=== PATIENT | male | born 1995 | race African-American/Black ===

== ENCOUNTER 2016-09-14 15:18 | Emergency (ER) | payer SELFPAY ==
[~2016-09-14] VITALS: Ht 172.7 cm; Wt 75.0 kg
[2016-09-14 15:27] VITALS: BP 164/98; PULSE 94; RESP 18; TEMP 98.1; O2SAT 100
--- NOTE | 2016-09-14 15:35 | PD ---
HPI Chief Complaint: Chest Pain Time Seen by Provider: 15:25 Travel History International Travel<30 days: No Contact w/Intl Traveler<30days: No Traveled to known affect area: No History of Present Illness HPI This is a 21-year-old male who presents to the emergency department with 30 minutes of chest discomfort, constant, sharp and stabbing associated with numbness in his left arm that started while he was cleaning. He denies any associated shortness of breath, nausea or diaphoresis. He's never had pain like this before. He came to the emergency department because he wanted to make sure nothing was wrong. He has no history of hypertension, hyperlipidemia , diabetes, family history of heart disease and denies any recent drug use. [facility] Past Medical History Medical History: Denies Significant Hx Social History Tobacco Use: No Substance Use: Yes (has a history of a corcidin overdose 4 years ago) Allergies-Medications Reported Meds & Prescriptions no medications Review of Systems Except as stated in HPI: all other systems reviewed are Neg Physical Exam Narrative GENERAL:Well appearing, no acute distress SKIN: Warm and dry. HEAD: Atraumatic. Normocephalic. EYES: Pupils equal and round. No injection or drainage. ENT: Moist mucous membranes NECK: Trachea midline. CARDIOVASCULAR: Regular rate and rhythm. No murmur appreciated. RESPIRATORY: Clear to auscultation. Breath sounds equal bilaterally. GASTROINTESTINAL: Abdomen soft, non-tender, nondistended. MUSCULOSKELETAL: No obvious deformities. NEUROLOGICAL: Awake and alert. No obvious cranial nerve deficits. Moving all extremities. PSYCHIATRIC: Tearful. Data Data Last Documented VS Vital Signs Date Time Temp Pulse Resp B/P Pulse Ox O2 Delivery O2 Flow Rate FiO2 09/14/16 15:27 Room Air [facility] Medical Decision Making Medical Screen Exam Complete: Yes Emergency Medical Condition: Yes Interpretation(s) EKG: Normal sinus rhythm with no ST changes Differential Diagnosis Acute coronary syndrome, pericarditis, costochondritis, panic attack Narrative Course This is a 21-year-old male who presents to the emergency department with chest discomfort that started half an hour prior to arrival. He is very well- appearing on exam and no medical problems. EKG was nonischemic. Chest x-rays reassuring. I don't suspect an emergent etiology of the patient's pain given his well appearance. Patient will be discharged home and can follow-up with his primary care physician. Diagnosis Primary Impression: Chest pain Qualified Code: R07.9 - Chest pain, unspecified type Patient Instructions: General Instructions Additional Instructions: If you develop severe chest pain, shortness of breath, sweating, lightheadedness , dizziness or difficulty breathing return to the emergency department immediately. Followup with your primary care physician in 2-3 days if your symptoms are not resolved. Med/Other Pt SpecificInfo: No Change to Meds Disposition: 01 DISCHARGE HOME Condition: Stable Cayla Uribe MD Sep 14, 2016 15:35
--- NOTE | 2016-09-14 15:56 | RADHPO ---
EXAM DATE/TIME: 09/14/2016 15:38 [place] COMPARISON: No previous studies available for comparison. INDICATIONS : Sudden onset of chest pain radiating down left arm, short of breath MEDICAL HISTORY : None. SURGICAL HISTORY : None. ENCOUNTER: Initial ACUITY: 1 day PAIN SCORE: 7/10 LOCATION: Bilateral chest FINDINGS: A single view of the chest demonstrates the lungs to be symmetrically aerated without evidence of mas s, infiltrate or effusion. The cardiomediastinal contours are unremarkable. Osseous structures are intact. CONCLUSION: No acute disease. Ferdinand Rand MD on September 14, 2016 at 15:54 Board Certified Radiologist. This report was verified electronically.
[2016-09-14 16:14] VITALS: BP 125/64; PULSE 74; RESP 14; O2SAT 100
--- NOTE | 2016-09-15 08:19 | EKG ---
Date Performed: 09/14/2016 Time Performed: 15:18:48 PTAGE: 21 years EKG: Sinus rhythm . Normal ECG NO PREVIOUS TRACING DOCTOR: Jarad Meredith Interpretating Date/Time 09/15/2016 08:18:47
== END 2016-09-14 16:23 | disposition home or self-care (01) ==
LOC: PHED 15:18
DX: R07.9 Chest pain, unspecified (principal)
CPT/HCPCS: 71010; 93005; 99284